=== PATIENT | female | born 1955 | race Asian ===

== ENCOUNTER 2016-07-02 22:28 | Emergency (ER) | payer OTHER ==
[~2016-07-02] VITALS: Ht 162.6 cm; Wt 88.6 kg
[~2016-07-02 22:28] MED LIST: ADVIL PO; AMLO2.5T PO; CA C1TAB83 PO; LISI-567 PO; METF500T4 PO; PRAV40TA PO
[2016-07-02 22:30] VITALS: BP 184/106; PULSE 78; RESP 16; O2SAT 100
[2016-07-02 23:16] VITALS: BP 188/93
--- NOTE | 2016-07-02 23:56 | ED.REPORT ---
HPI-General Illness Date of Service Jul 02, 2016 ED Provider: Terrance Mary MD The patient is a 61 year old female who presents to the ED complaining of productive cough with brown sputum and headache for the last day. The patient reports that she has run out of her Lisinopril and Metoprolol (for the last month) and presents with concern for hypertension. Associated symptoms of headache, nasal congestion, and pleuritic chest pain. She denies fever, myalgias , and any other symptoms at this time. Nursing Notes Stated Complaint: HIGH BLOOD PRESSURE, FLU SYMPTOMS Chief Complaint: FLU/Cold Symptoms Nursing Notes Reviewed: Yes Allergies: Coded Allergies: Latex (Verified Allergy, Unknown, rash, 07/02/09) w/ prolonged exposure Scheduled ([Advil]) PO PRN DOSAGE UNKNOWN Amlodipine (Amlodipine) 2.5 Mg Tablet 2.5 MG PO DAILY Ca Carbonate/Vitamin D3/Vit K (Calcium + D Soft Chewable Tab) 1 Each Tab.chew 1 EACH PO DAILY Lisinopril (Lisinopril) 20 Mg Tablet 20 MG PO DAILY Lisinopril (Lisinopril) 20 Mg Tablet 20 MG PO DAILY Metformin (Metformin) 500 Mg Tablet 500 MG PO DAILYWM Metoprolol Tartrate (Metoprolol Tartrate) 25 Mg Tablet 25 MG PO BID Pravastatin (Pravastatin) 40 Mg Tablet 40 MG PO DAILY General Time Seen by MD: 23:55 Chief Complaint Cough, Headache, Other (Hypertension) Hx Obtained From: Patient Arrived By: Walk-in Sudden in Onset?: No Onset Occurred: 1 day ago Symptom Duration: Since onset Location: : Head Quality: Painful Severity: Current: Mild Severity: Maximum: Mild Recent Healthcare: No recent doctor visit, No recent hospitalization Similar Sx Previous: No Past Medical History Past Medical History None reported Past Surgical History None reported Smoking History Never Smoker Social History Alcohol Use: Denies alcohol use Drug Use: Denies drug use Ambulatory Status Independent Review of Systems Full Review of Systems Constitutional: Denies: Chills, Fever Ears / Nose / Throat: Reports: Nasal congestion Respiratory: Reports: Prod cough, brown, Denies: Shortness of breath, Wheezing Cardiovascular: Reports: Dyspnea on exertion GI: Denies: Nausea, Vomiting Neurologic: Reports: Headache Complete sys rev & neg: except as marked. Physical Exam Vital Signs Vital Signs Date Time Temp Pulse Resp B/P Pulse Ox O2 Delivery O2 Flow Rate FiO2 07/03/16 00:55 81 18 198/76 97 Room Air 07/03/16 00:28 71 18 99 Room Air 07/02/16 23:16 188/93 07/02/16 22:30 37.1 78 16 184/106 100 Room Air Initial VS: Reviewed Neck: Supple, Non-tender, Full range of motion Respiratory: Breath sounds normal, Clear to auscultation, No respiratory distress Cardiovascular: Regular rate & rhythm, Heart sounds normal, Intact distal pulses Abdomen / GI: Soft, Non-tender, No guarding, No rebound, No distention Back: No CVA tenderness Extremities: Vascular intact, Neuro intact, No swelling, No tenderness Skin: Warm, Dry, No cyanosis Neurologic: Alert, Oriented, Nonfocal Psychiatric: Mood/affect normal, Behavior normal, Normal thought content General/Constitutional: Awake, Alert, No acute distress Head / Eyes: Atraumatic, Normocephalic, PERRL, EOMI ENT: Atraumatic, Airway patent, Tympanic membs NL, Ext aud canal NL Significant nasal congestion Re-Eval/Medical Decision Med Decision/Clinical Course 7-year-old with upper respiratory symptoms, nasal discharge, cough, and some bronchospasm on exam. Oxygen saturation is normal. No lung findings to suggest pneumonia. Suspect viral etiology underlying. Home with albuterol. Incidental hypertension resulting from not taking her meds for more than a month. Lisinopril and metoprolol renewed her prior prescription. Follow up with PCP ALFREDO. Source of Hx: Old records Time of Eval: 00:29 Re-Evaluation/Progress Note: Rechecked the patient. Discussed diagnosis and plan for discharge. Follow-up instructions and RTER warnings given. The patient understands and agrees to the plan. All questions addressed. Counseled Regarding: Diagnosis, Need for follow-up, When/why to return to ED Discharge & Departure Primary Impression: Upper respiratory infection URI type: unspecified viral URI Qualified Code: J06.9 - Acute upper respiratory infection, unspecified Additional Impressions: Reactive airway disease that is not asthma Hypertension Hypertension type: essential hypertension Hypertension goal: unspecified goal Qualified Code: I10 - Essential (primary) hypertension Disposition: Home Discharge Condition All VS Reviewed: Yes Condition: Stable Patient Instructions: Chronic Hypertension (ED), Reactive Airways Disease (ED) , Upper Respiratory Infection (ED) Additional Instructions: Use Afrin spray in both nostrils nightly for four nights only then stop. Resume your blood pressure medicines. Follow-up with your doctor as planned. Drink plenty of clear fluids. Stay well hydrated. Run a vaporizer in your sleeping room to keep the air moist and your secretions moist. Referrals: Lara Bonilla MD (PCP) Scribe Attestation Portions of this note were transcribed by Misha Wang. I, Dr. Mary, personally performed the history, physical exam, and medical decision-making; I reviewed and confirmed the accuracy of the information in the transcribed note. Signed by: Micheline Carlos, 07/02/16 00:50. copies to: Lara Bonilla MD, Christopher W MD Jul 02, 2016 23:56 MISHA WANG Jul 03, 2016 00:05
[2016-07-03] MEDS ORDERED: Albuterol-Ipratropium 3 mL Inhalation Solution NEB ONE (00:15)
[2016-07-03] MEDS ORDERED: _Albuterol-HFA 60 Puff Inhaler INHALATION PRN (00:15)
[2016-07-03] MEDS ORDERED: LISI-567 PO (00:23)
[2016-07-03] MEDS ORDERED: METO25TA6 PO (00:23)
[2016-07-03 00:28] VITALS: PULSE 71; RESP 18; O2SAT 99
[2016-07-03 00:55] VITALS: BP 198/76; PULSE 81; RESP 18; O2SAT 97
== END 2016-07-03 00:56 | disposition home or self-care (01) ==
LOC: SED 22:28
DX: J06.9 Acute upper respiratory infection, unspecified (principal); J98.9 Respiratory disorder, unspecified; I10 Essential (primary) hypertension; Z79.84 Long term (current) use of oral hypoglycemic drugs; Z91.040 Latex allergy status
CPT/HCPCS: 94640; 94664; 99284; J7620